=== PATIENT | female | born 1945 | race Two or more races ===

== ENCOUNTER 2022-02-08 10:45 | Emergency (ER) | payer OTHER ==
[~2022-02-08] VITALS: Ht 157.5 cm; Wt 59.9 kg
[2022-02-08] MEDS ORDERED: AMLODIPINE-OLM1 EAC2 PO (11:12)
[2022-02-08] MEDS ORDERED: COZAAR25 MG PO (11:12)
[2022-02-08] MEDS ORDERED: LEVO-T25 MCG PO (11:12)
== END 2022-02-08 13:11 | disposition home or self-care (01) ==
LOC: ER 10:45
DX: M62.830 Muscle spasm of back (principal); M54.89 Other dorsalgia